=== PATIENT | male | born 1985 | race Caucasian/White ===

== ENCOUNTER → 2018-04-04 | Outpatient (CLI) | payer OTHER ==
--- NOTE | 2018-04-04 16:40 | RADIOLOGY IMAGING REPORT ---
FACILITY: [facility] PATIENT NAME: Nany Armenta : 1985 MR: [id number] V: [id number] EXAM DATE: ORDERING PHYSICIAN: SHORTY HALE TECHNOLOGIST: Location: [facility] [place] Patient: Nany Armenta : 1985 Visit/Account:[id number] Date of Sevice: 04/04/2018 Exam type: CHEST PA AND LAT History: History of TB vaccine, no chest complaints Comparison: None. Findings: The lungs are free of acute effusions, infiltrates or edema. No cavitary lesions are seen. The card iac silhouette is normal in size. The trachea is in midline.. Visualized bones are unremarkable for age IMPRESSION: 1. No acute cardiac pulmonary process is seen. Specifically no chest radiographic evidence of activ e tuberculosis Report Dictated By: Sophie Velázquez MD at 04/04/2018 4:35 PM Report E-Signed By: Sophie Velázquez MD at 04/04/2018 4:37 PM WSN:[id number]
== END ==
LOC: RAD 15:45
PROVIDERS: ATTEND Family Medicine
DX: Z02.89 Encounter for other administrative examinations (principal)
CPT/HCPCS: 71046